=== PATIENT | female | born 1995 | race Caucasian/White ===

== ENCOUNTER 2017-02-03 02:20 | Emergency (ER) | payer MEDICAID, OTHER ==
[~2017-02-03] VITALS: Ht 165.1 cm; Wt 68.0 kg
[2017-02-03] MEDS ORDERED: NKM (02:34)
[2017-02-03 02:40] VITALS: BP 121/88
[2017-02-03] MEDS ORDERED: LORazepam 1mg tab ORAL ONE (03:00)
[2017-02-03 03:03] LABS: APPEARANCE,URINE CLEAR; KETONES,URINE NEGATIVE (NEGATIVE); LEUKOCYTE ESTERASE ,URINE NEGATIVE (NEGATIVE); NITRITE,URINE NEGATIVE (NEGATIVE); PH,URINE 7 (4.5-8.0); PROTEIN,URINE NEGATIVE (NEGATIVE); UROBILINOGEN,URINE NORMAL MG/DL (0.0-1.0)
[2017-02-03 03:15] LABS: BASOPHILS % (AUTO) 0.8 % (0.0-2.0); EOSINOPHILS % (AUTO) 1.1 % (0.0-3.0); LYMPHOCYTES % (AUTO) 36.5 % (20.0-45.0); MEAN CORPUSCULAR HEMOGLOBIN 31.3 PG (27.0-31.0); MEAN CORPUSCULAR HGB CONC 33.3 G/DL (32.0-36.0); MEAN CORPUSCULAR VOLUME 94 FL (80-99); MEAN PLATELET VOLUME 6.4 FL (6.5-10.1); MONOCYTES % (AUTO) 5.2 % (1.0-10.0); NEUTROPHILS % (AUTO) 56.4 % (45.0-75.0); PLATELET COUNT 284 K/UL (150-450); RED BLOOD COUNT 4.68 M/UL (4.20-5.40); RED CELL DISTRIBUTION WIDTH 12.3 % (11.6-14.8); WHITE BLOOD COUNT 5.8 K/UL (4.8-10.8)
[2017-02-03 03:31] LABS: ACETAMINOPHEN < 10 ug/mL (10-30); ALANINE AMINOTRANSFERASE 24 U/L (3-33); ALBUMIN/GLOBULIN RATIO 1.4 (1.0-2.7); ALCOHOL 243 mg/dL; ANION GAP 16 (5-15); ASPARTATE AMINO TRANSFERASE 38 U/L (5-40); CALCIUM 9.5 mg/dL (8.6-10.2); CARBON DIOXIDE 25 mEQ/L (20-30); CHLORIDE 103 mEQ/L (98-107); CREATININE 0.8 mg/dL (0.5-0.9); GLOMERULAR FILTRATION RATE > 60 mL/min (>60); HEMOLYSIS 5; POTASSIUM 3.7 mEQ/L (3.4-4.9); SODIUM 144 mEQ/L (135-145); TOTAL PROTEIN 7.7 g/dL (6.6-8.7)
[2017-02-03 05:29] VITALS: BP 116/73
--- NOTE | 2017-02-03 06:16 | Emergency Room Report ---
History of Present Illness General Chief Complaint: Laceration Source: Patient (TOMAS CAMPBELL M.D.) Present Illness HPI Is a 21-year-old female with no past medical history. She never been in a psychiatric facility before. She presents with chief complaint of feeling depressed. She said she has a lot of stress and issue with her family and job. She's been drinking tonight. She felt very depressed starting yesterday. She had self laceration to the right arm. She cut herself with a razor blade. Denies any other drug use. Did admit to marijuana. She still say that she is depressed and suicidal. (TOMAS CAMPBELL M.D.) Allergies: Coded Allergies: No Known Allergies (Unverified , 02/03/17) Patient History Past Medical History: none, see triage record, old chart reviewed Past Surgical History: none Family History: none Social History: ETOH Last Menstrual Period: last week Now: No : 0 Para: 0 Immunizations: other Reviewed Nursing Documentation: PMH: Agreed, PSxH: Agreed (TOMAS CAMPBELL M.D.) Nursing Documentation-PMH Past Medical History: No Stated History (TOMAS CAMPBELL M.D.) Review of Systems ENT: Denies: sore throat Cardiovascular: Denies: chest pain, palpitations Gastrointestinal/Abdominal: Denies: diarrhea, nausea, vomiting Musculoskeletal: Denies: back problems Skin: Denies: rash Neurological: Denies: WALLS, seizures All Other Systems: negative except mentioned in HPI (TOMAS CAMPBELL M.D.) Physical Exam Vital Signs Date Time Temp Pulse Resp B/P Pulse Ox O2 Delivery O2 Flow Rate FiO2 02/03/17 02:29 97.7 95 16 121/88 99 Room Air vitals normal Sp02 EP Interpretation: reviewed, normal General Appearance: alert/responsive, no apparent distress, non-toxic Head: normocephalic, atraumatic Eyes: PERRL, EOMI ENT: oropharynx normal Neck: supple/symm/no masses Respiratory: effort normal, no rhonchi, no wheezing Cardiovascular: no murmur, gallop, rub Gastrointestinal: non-tender, no mass, non-distended, no rebound/guarding, normal bowel sounds Musculoskeletal: gait & station normal, other - Superficial laceration to the right forearm. Nothing to be sutured. Neurologic: oriented x3, sensory intact, motor strength/tone normal Psychiatric: anxious - Crying Skin: no rash, normal palpation (TOMAS CAMPBELL M.D.) Medical Decision Making Diagnostic Impression: Primary Impression: Depression Qualified Codes: F32.2 - Major depressive disorder, single episode, severe without psychotic features Additional Impressions: Suicidal ideations Laceration of forearm, right Qualified Codes: S51.811A - Laceration without foreign body of right forearm, initial encounter Alcohol intoxication Qualified Codes: F10.120 - Alcohol abuse with intoxication, uncomplicated ER Course Patient presents with depression and anxiety. All intoxicated by alcohol. We' ll get psychiatric evaluation. Her wounds are superficial. Laboratory Tests Test 02/03/17 02:40 02/03/17 03:10 Urine Color Pale yellow Urine Appearance Clear Urine pH 7 (4.5-8.0) Urine Specific [place] 1.005 (1.005-1.035) Urine Protein Negative (NEGATIVE) Urine Glucose (UA) Negative (NEGATIVE) Urine Ketones Negative (NEGATIVE) Urine Occult Blood Negative (NEGATIVE) Urine Nitrite Negative (NEGATIVE) Urine Bilirubin Negative (NEGATIVE) Urine Urobilinogen Normal MG/DL (0.0-1.0) Urine Leukocyte Esterase Negative (NEGATIVE) Urine HCG, Qualitative Negative Urine Opiates Screen Negative (NEGATIVE) Urine Barbiturates Screen Negative (NEGATIVE) Phencyclidine (PCP) Screen Negative (NEGATIVE) Urine Amphetamines Screen Negative (NEGATIVE) Urine Benzodiazepines Screen Negative (NEGATIVE) Urine Cocaine Screen Negative (NEGATIVE) Urine Marijuana (THC) Screen Positive (NEGATIVE) H White Blood Count 5.8 K/UL (4.8-10.8) Red Blood Count 4.68 M/UL (4.20-5.40) Hemoglobin 14.7 G/DL (12.0-16.0) Hematocrit 44.0 % (37.0-47.0) Mean Corpuscular Volume 94 FL (80-99) Mean Corpuscular Hemoglobin 31.3 PG (27.0-31.0) H Mean Corpuscular Hemoglobin Concent 33.3 G/DL (32.0-36.0) Red Cell Distribution Width 12.3 % (11.6-14.8) Platelet Count 284 K/UL (150-450) Mean Platelet Volume 6.4 FL (6.5-10.1) L Neutrophils (%) (Auto) 56.4 % (45.0-75.0) Lymphocytes (%) (Auto) 36.5 % (20.0-45.0) Monocytes (%) (Auto) 5.2 % (1.0-10.0) Eosinophils (%) (Auto) 1.1 % (0.0-3.0) Basophils (%) (Auto) 0.8 % (0.0-2.0) Sodium Level 144 mEQ/L (135-145) Potassium Level 3.7 mEQ/L (3.4-4.9) Chloride Level 103 mEQ/L (98-107) Carbon Dioxide Level 25 mEQ/L (20-30) Anion Gap 16 (5-15) H Blood Urea Nitrogen 5 mg/dL (7-23) L Creatinine 0.8 mg/dL (0.5-0.9) Estimat Glomerular Filtration Rate > 60 mL/min (>60) Glucose Level 110 mg/dL (74-106) H Calcium Level 9.5 mg/dL (8.6-10.2) Total Bilirubin < 0.2 mg/dL (0.0-1.2) Aspartate Amino Transf (AST/SGOT) 38 U/L (5-40) Alanine Aminotransferase (ALT/SGPT) 24 U/L (3-33) Alkaline Phosphatase 32 U/L (35-104) L Total Protein 7.7 g/dL (6.6-8.7) Albumin 4.5 g/dL (3.5-5.2) Globulin 3.2 g/dL Albumin/Globulin Ratio 1.4 (1.0-2.7) Salicylates Level < 1 mg/dL (10-30) L Acetaminophen Level < 10 ug/mL (10-30) L Serum Alcohol 243 mg/dL Lab Results Impression labs with elevated alcohol level. (TOMAS CAMPBELL M.D.) ER Course Patient signed out to me from Dr Nguyen at 3pm for PET psychiatrist came to see patient, did initial assessment but when went back to reassess patient, she had eloped from ER with her sister (NATALIA DOMINIQUE M.D.) Last Vital Signs Date Time Temp Pulse Resp B/P Pulse Ox O2 Delivery O2 Flow Rate FiO2 02/03/17 05:29 98.5 81 16 116/73 97 Room Air Status: improved (TOMAS CAMPBELL M.D.) Disposition: HOME, SELF-CARE Condition: Stable Referrals: NOT CHOSEN IPA/,REFERRING (PCP) TOMAS CAMPBELL M.D. Feb 03, 2017 06:16 NATALIA DOMINIQUE M.D. Feb 03, 2017 21:22
[2017-02-03 06:48] VITALS: BP 113/71
[2017-02-03 14:01] VITALS: BP 115/70
[2017-02-03 17:17] VITALS: BP 115/70
--- NOTE | 2017-02-04 01:08 | Progress Note ---
DATE: 02/03/2017 SUBJECTIVE: The patient is a 21-year-old female with no history of psychiatric illness. She was brought in. After she was intoxicated with alcohol and was erratic and confused last night when her family came back home. She stated that she does not have any recollection of the incident. She stated that DICTATION ENDS ABRUPTLY Christelle Ruffin M.D. DR: MIRI JOB#: [id number] CC:
== END 2017-02-03 17:05 | disposition home or self-care (01) ==
LOC: EMR 04:25
DX: F32.2 Major depressive disorder, single episode, severe without psychotic features (principal); R45.851 Suicidal ideations; S51.811A Laceration without foreign body of right forearm, initial encounter; F10.120 Alcohol abuse with intoxication, uncomplicated; X78.8XXA Intentional self-harm by other sharp object, initial encounter; Y93.9 Activity, unspecified; Y92.9 Unspecified place or not applicable; F12.90 Cannabis use, unspecified, uncomplicated
CPT/HCPCS: 36415; 80053; 80300; 80329; 81003; 81025; 85025; 96374